=== PATIENT | male | born 1975 | race Caucasian/White ===

== ENCOUNTER 2024-04-30 10:35 | Emergency (ER) | payer BC, SELFPAY ==
[2024-04-30 10:45] VITALS: BP 109/70
[2024-04-30 11:21] LABS: % Basophils 0.5 % (0-2); % Eosinophils 2.3 % (0-6); % Immature Granulocytes 0.2 % (0-0.5); % Lymphocytes 34.7 % (20.5-51.1); % Monocytes 9.2 % (1.7-9.3); % Neutrophils 53.1 % (42.2-75.2); Absolute Eosinophils 0.1 10^3/uL (0-0.7); Absolute Monocytes 0.5 10^3/uL (0.1-0.6); Hematocrit 36.7 % (39.0-52.0); Hemoglobin 12.8 g/dL (13.0-18.0); Mean Corp Hgb Conc. 34.9 g/dL (33.0-37.0); Mean Corpuscular Hgb 32.1 pg (27.0-31.0); Mean Platelet Volume 10.7 fL (7.4-10.4); Nucleated Red Blood Cells % 0 % (-); Platelet Count 243 10^3/uL (130-400); Red Blood Cell Count 3.99 10^6/uL (4.70-6.10); Red Cell Dist. Width 11.5 % (11.5-14.5); White Blood Cell Count 5.7 10^3/uL (4.8-10.8)
[2024-04-30 12:00] LABS: ALT (SGPT) 41 U/L (0-50); AST (SGOT) 41 U/L (17-59); Albumin 4.7 g/dl (3.5-5.0); Alkaline Phosphatase 58 U/L (38-126); Blood Urea Nitrogen 20 mg/dl (9-20); Calcium 9.1 mg/dl (8.4-10.2); Carbon Dioxide 28 mmol/L (22-30); Chloride 101 mmol/L (98-107); Glucose 88 mg/dl (70-99); Potassium 4.1 mmol/L (3.5-5.1); Sodium 138 mmol/L (135-145); Total Bilirubin 0.4 mg/dl (0.2-1.3); Total Protein 6.8 g/dl (6.3-8.2); eGFR > 60.00
[2024-04-30 12:09] LABS: Troponin I < 0.012 ng/ml
--- NOTE | 2024-04-30 13:04 | ED.GENMED ---
History of Present Illness
General
Chief Complaint: Chest Problem
Source: patient
Exam Limitations: none
Time Seen by Provider: 04/30/24 12:48
History of Present Illness
History of Present Illness:
48-year-old male who presents with left-sided chest pain. He states he noticed it when he woke up at 7 AM. Patient states that his symptoms have been constant and unchanged. It does not wax and wane. He denies shortness of breath. He states it
seems to feel little worse when he lays back. No fevers. No cough. No cold. He does exercise and never gets chest pain or shortness of breath when he exercises. Patient denies any specific injury. Denies leg swelling. No recent travel. No
recent immobilization. No leg pain.
Past History
Past History
ED Past Medical History: Other (Kidney stones)
ED Past Surgical History: Negative Urological
Social History
Tobacco: Non-smoker
Alcohol: None
Drug: None
Personal: Single
Living: with family
Employment: Employed
Family History
Family History: Other (Noncontributory)
Phy Exam
Physical Exam
Physical Exam:
CONSTITUTIONAL Patient alert and oriented to person, place and time. Well-appearing. Vital signs reviewed.
HEAD atraumatic, normocephalic.
EYES eyelids normal to inspection, Extraocular muscles intact, Conjunctiva normal, Sclera normal.
NECK normal range of motion, Trachea midline, no jugular venous distention.
RESPIRATORY CHEST No respiratory distress noted, Chest expansion equal, Bilateral breath sounds clear.
CARDIOVASCULAR regular rate and rhythm, Heart sounds normal.
ABDOMEN abdomen nontender, Bowel sounds normal. No distention.
BACK normal inspection, no obvious deformities
UPPER EXTREMITY range of motion normal, Motor strength normal, no cyanosis, no edema.
LOWER EXTREMITY range of motion normal, Motor strength normal, no cyanosis, no edema.
NEURO Speech normal, No focal motor deficits, Demar coma scale 15, Memory normal, Cranial Nerves intact to screening exam.
SKIN skin warm, dry, and normal in color.
Scores
PE Wells Score
Symptoms of DVT: No
No alternative diagnosis better explains the illness: No
Tachycardia with pulse > 100: No
Immobilization (>=3 days) or surgery within previous 4 weeks: No
Prior history of DVT or pulmonary embolism: No
Presence of hemoptysis: No
Presence of malignancy: No
Pulmonary Embolism Risk Score: 0
Probability of PE: Pt is low risk
Course
Orders/Labs/Results
Orders:
Orders
04/30/24 10:40
Electrocardiogram (*1) Urgent
Reason for Study: Chest Pain
EKG- Treatment ONCE
04/30/24 10:47
CXR2 [CR Chest - 2 Views ] Urgent
Comment:
Reason For Exam: chest pain started this morning
04/30/24 10:58
Complete Blood Count/With Diff Urgent
Comprehensive Metabolic Panel Urgent
Troponin I Urgent
Abnormal Lab Results
04/30/24
10:58
RBC 3.99 L 10^6/uL
(4.70-6.10)
Hgb 12.8 L g/dL
(13.0-18.0)
Hct 36.7 L %
(39.0-52.0)
MCH 32.1 H pg
(27.0-31.0)
MPV 10.7 H fL
(7.4-10.4)
04/30/24 10:58
04/30/24 10:58
Vital Signs
Initial and Last Documented VS:
Initial Vital Signs
Temp Pulse Resp BP Pulse Ox
98.3 F 76 16 109/70 98
04/30/24 10:45 04/30/24 10:45 04/30/24 10:45 04/30/24 10:45 04/30/24 10:45
Last Documented Vital Signs
Temp Pulse Resp BP Pulse Ox
98.3 F 76 16 109/70 98
04/30/24 10:45 04/30/24 10:45 04/30/24 10:45 04/30/24 10:45 04/30/24 10:45
MDM/Problems Addressed
Differential Diagnosis Includes:
Acute coronary syndrome, pneumothorax, pulmonary embolism, aortic dissection, musculoskeletal etiology, GI causes
MDM/Problems Addressed:
Chest pain
*Radiology
Radiology exam reviewed: radiology read reviewed
*Pulse Oximetry
Patient hypoxic: no
*EKG
Interpreted by ED Provider?: Yes
Interpretation: normal
Rate: normal
Rhythm: sinus
[place]: normal axis
Interval: normal interval
QRS Pattern: normal QRS
Ischemia: no ischemia
*Critical Care Note
Total Time (30-74mins, 75-104mins- exclusive of procedures): Not Applicable
Data Reviewed
Source: patient
Further Testing Considered But Not Given:
Consider CTA but no PE risk factors.
Patient Management
Escalation/DeEscalation of care consider admission/obs:
48-year-old male presents with chest pain started 7 AM has been constant. Appears well. No significant ACS or PE risks. Vital signs okay. Okay for outpatient PCP follow-up
ED Attending Note
-
Portions of this chart may have been created with voice recognition software.� Occasional wrong word or��sound alike� substitutions may have occurred due to the inherent limitations of voice recognition software.
Discharge Plan
Departure
Patient Disposition: Home (Routine Discharge)
Date of Disposition: 04/30/24
Time of Disposition: 13:09
Patient with high blood pressure during this ER visit?: No
Discharge Problem:
Chest pain
Instructions: Chest Pain PCP Follow Up
Prescriptions:
No Action
ibuprofen 600 MG tablet
600 mg PO Q6H Qty: 30 0RF
hydrocodone-acetaminophen [Vicodin] 1 EACH tablet
1 ea PO Q4 PRN (Reason: pain) Qty: 14 0RF
oxycodone-acetaminophen 1 TABLET tablet
1 - 2 tab PO Q4HPRN PRN (Reason: prn for pain) Qty: 20 0RF
Referrals:
Inga Lyons MD [Family Provider] -
Activity Restrictions/Additional Instructions:
Return immediately for worsening symptoms, shortness of breath, vomiting, abdominal pain, weakness of any kind, fevers, coughing up blood or any other concerns. Please see your doctor in the next 3 to 5 days for follow-up and reevaluation.
Interventions
Interventions:
*Risk Screen - Suicide Last Done: 04/30/24 10:45
*General Assessment Last Done: 04/30/24 11:35
*Neglect/Abuse Screening Last Done: 04/30/24 10:45
ED- Fall Risk Assessment Last Done: 04/30/24 11:35
ED- Cardiac Assessment Last Done: 04/30/24 11:35
ED- Pulmonary Assessment Last Done: 04/30/24 11:35
Discharge Date and Time
Print Language: HONDURAN
[2024-04-30 13:11] VITALS: BP 110/71
== END 2024-04-30 14:21 | disposition home or self-care (01) ==
LOC: EMR 10:35
PROVIDERS: Student in an Organized Health Care Education/Training Program; EMERGENCY PHYSICIAN Emergency Medicine; FAMILY PHYSICIAN Internal Medicine
DX: R07.89 Other chest pain (principal); Z87.442 Personal history of urinary calculi
CPT/HCPCS: 99285; 71046; 80053; 84484; 85025; 93005